=== PATIENT | male | born 1980 | race Caucasian/White ===

== ENCOUNTER 2017-08-20 15:15 | Emergency (ER) | payer MEDICAID ==
--- NOTE | 2017-08-20 15:42 | ER Document Report ---
ED Medical Screen (RME) - General Chief Complaint: Chest Pain Stated Complaint: CHEST PAIN Time Seen by Provider: 08/20/17 15:26 Mode of Arrival: Ambulatory Information source: Patient Notes: 37 y.o male with a PMHx of anxiety, HTN, HLD and GERD presents to the ED with elevated HR. He states that he has been trying to be healthy by eating healthy and working out but today after eating lunch he vomited. He also states that he was going to help his friend move and once he got here he started to feel his heart "fluttering" and went home to rest but was without relief. He states that he's been experiencing episode like this intermittently and he will feel bloated and will feel uneasy at his diaphragm area making him get anxiety. He denies any CP or hx of [place] or stroke. I have greeted and performed a rapid initial assessment of the patient. A comprehensive ED assessment and evaluation of the patient, analysis of test results, and completion of the medical decision making process will be conducted by additional ED providers. TRAVEL OUTSIDE OF THE [place] IN LAST 30 DAYS: No - Related Data Allergies/Adverse Reactions: No Known Allergies Allergy (Verified 08/20/17 15:26) Past Medical History - General Information source: Patient - Past Medical History Cardiac Medical History: Reports: Hx Hypercholesterolemia, Hx Hypertension Renal/ Medical History: Denies: Hx Peritoneal Dialysis GI Medical History: Reports: Hx Gastroesophageal Reflux Disease Psychiatric Medical History: Reports: Hx Anxiety Review of Systems - Review of Systems Constitutional: No symptoms reported EENT: No symptoms reported Cardiovascular: See HPI, Heart racing. denies: Chest pain Respiratory: No symptoms reported Gastrointestinal: See HPI, Vomiting Genitourinary: No symptoms reported Male Genitourinary: No symptoms reported Musculoskeletal: No symptoms reported Skin: No symptoms reported Hematologic/Lymphatic: No symptoms reported Neurological/Psychological: No symptoms reported -: Yes All other systems reviewed and negative Physical Exam - Notes Notes: Physical Exam: General: Alert, appears well. HEENT: Normocephalic. Atraumatic. PERRLA. Extraocular movements intact. Oropharynx clear. Neck: Supple. Respiratory: No respiratory distress. Cardiovascular: regular rate and rhythm. Abdominal: Normal Inspection. No distension. Extremities: Moves all four extremities. Neurological: Normal cognition. AAOx4. Normal speech. Psychological: Normal affect. Normal Mood. Skin: Warm. Dry. Normal color. Scribe Documentation - Scribe Written by Maximo:: Maximo Campbell 08/20/17 [id number] acting as scribe for :: Mack
[2017-08-20 16:09] LABS: ABSOLUTE BASOPHILS # (AUTO) 0.1 10^3/uL (0.0-0.2); ABSOLUTE EOSINOPHILS # (AUTO) 0.2 10^3/uL (0.0-0.6); ABSOLUTE LYMPHOCYTES (AUTO) 1.6 10^3/uL (0.5-4.7); ABSOLUTE MONOCYTES (AUTO) 0.6 10^3/uL (0.1-1.4); BASOPHILS % (AUTO) 0.9 % (0-2); EOSINOPHILS % (AUTO) 3.7 % (0-6); HEMOGLOBIN 15.7 g/dL (13.5-17.0); LYMPHOCYTES % (AUTO) 24.4 % (13-45); MEAN CORPUSCULAR HEMOGLOBIN 29.2 pg (27.0-33.4); MEAN CORPUSCULAR HGB CONC 34.1 g/dL (32.0-36.0); MEAN CORPUSCULAR VOLUME 86 fl (80-97); MONOCYTES % (AUTO) 9.1 % (3-13); PLATELET COUNT 218 10^3/uL (150-450); RED BLOOD COUNT 5.39 10^6/uL (4.35-5.55); RED CELL DISTRIBUTION WIDTH 13.1 % (11.5-14.0); SEGMENTED NEUTROPHILS % (AUTO) 61.9 % (42-78); TOTAL CELLS COUNTED % (AUTO) 100 %; WHITE BLOOD COUNT 6.4 10^3/uL (4.0-10.5)
--- NOTE | 2017-08-20 16:15 | RADIOLOGY REPORT (SQ) ---
EXAM DESCRIPTION: CHEST SINGLE VIEW COMPLETED DATE/TIME: 08/20/2017 4:05 pm REASON FOR STUDY: palpitations, arm pain COMPARISON: None. EXAM PARAMETERS: NUMBER OF VIEWS: One view. TECHNIQUE: Single frontal radiographic view of the chest acquired. RADIATION DOSE: NA LIMITATIONS: None. FINDINGS: LUNGS AND PLEURA: No consolidation, pneumothorax or pleural effusion. MEDIASTINUM AND HILAR STRUCTURES: No masses. Contour normal. HEART AND VASCULAR STRUCTURES: Heart normal in size. Normal vasculature. BONES: No acute findings. HARDWARE: None in the chest. IMPRESSION: No acute radiographic finding in the chest. TECHNICAL DOCUMENTATION: JOB ID: [id number] [employer]- All Rights Reserved Reading location - IP/workstation name: [email or web address]
[2017-08-20 16:32] LABS: ALANINE AMINOTRANSFERASE 62 U/L (21-72); ALBUMIN 4.6 g/dL (3.5-5.0); ALKALINE PHOSPHATASE 57 U/L (38-126); ANION GAP 12 (5-19); ASPARTATE AMINO TRANSFERASE 27 U/L (17-59); BILIRUBIN,DIRECT 0.3 mg/dL (0.0-0.4); BILIRUBIN,TOTAL 0.7 mg/dL (0.2-1.3); BLOOD UREA NITROGEN 17 mg/dL (7-20); CARBON DIOXIDE 27 mmol/L (22-30); CHLORIDE 106 mmol/L (98-107); GLUCOSE 103 mg/dL (75-110); POTASSIUM 3.9 mmol/L (3.6-5.0); SODIUM 145.4 mmol/L (137-145); TOTAL PROTEIN 7.5 g/dL (6.3-8.2)
[2017-08-20] MEDS ORDERED: METOCLOPRAMIDE HCL ORAL SOLN 10 MG/10 ML UDCUP PO ONE (17:32)
[2017-08-20] MEDS ORDERED: LIDOCAINE 2% VISCOUS SOLN 20 ML UDCUP PO ONE (17:32)
[2017-08-20] MEDS ORDERED: MAG HYDROX/AL HYDROX/SIMETH SUSP 30 ML UDCUP PO ONE (17:32)
--- NOTE | 2017-08-20 18:38 | ER Document Report ---
ED General - General Chief Complaint: Chest Pain Stated Complaint: CHEST PAIN Time Seen by Provider: 08/20/17 15:26 Mode of Arrival: Ambulatory Information source: Patient Notes: 37-year-old male with a history of hypertension, anxiety, gastritis, GERD presents with complaint of chest pain that started 2 hours prior to arrival. Patient states that he experienced burning chest pain immediately after eating [place] food. He states the pain was so intense it caused him to be nauseated and he vomited. Patient took a Xanax, Pepto-Bismol and Veronica[place] and had relief of symptoms. He has had prior similar symptoms in the past. He has had a normal stress test that was performed one year prior to arrival. Patient does admit to heavy drinking last night. He states he drank multiple vodka drinks. He admits to poor diet and eating fast food frequently. Patient is pain-free upon my exam. Patient denies family history of early cardiac disease. TRAVEL OUTSIDE OF THE [place] IN LAST 30 DAYS: No - Related Data Allergies/Adverse Reactions: No Known Allergies Allergy (Verified 08/20/17 15:26) Past Medical History - General Information source: Patient - Social History Smoking Status: Unknown if Ever Smoked Chew tobacco use (# tins/day): Yes Smoking Education Provided: No Frequency of alcohol use: Occasional - admits to heavy drinking last night. Drug Abuse: None Lives with: Family, Spouse/Significant other Family History: Reviewed & Not Pertinent Patient has suicidal ideation: No Patient has homicidal ideation: No - Past Medical History Cardiac Medical History: Reports: Hx Hypercholesterolemia, Hx Hypertension Renal/ Medical History: Denies: Hx Peritoneal Dialysis GI Medical History: Reports: Hx Gastroesophageal Reflux Disease Psychiatric Medical History: Reports: Hx Anxiety Past Surgical History: Reports: Hx Orthopedic Surgery - leg and back Review of Systems - Review of Systems Constitutional: denies: Chills, Diaphoresis, Fever EENT: No symptoms reported Cardiovascular: Chest pain. denies: Palpitations Respiratory: denies: Short of breath Gastrointestinal: Abdominal pain - described as fullness, Nausea, Vomiting Physical Exam - Vital signs Vitals: Pulse Ox 98 08/20/17 16:49 - General General appearance: Appears well, Alert In distress: None - HEENT Pupils: PERRL - Respiratory Respiratory status: No respiratory distress. No: Respiratory distress Chest status: Nontender Breath sounds: Normal Chest palpation: Normal - Cardiovascular Rhythm: Regular Heart sounds: Normal auscultation Murmur: No Pulses: Normal: Radial, Dorsalis pedis Normal capillary refill: Yes - Abdominal Inspection: Normal Distension: No distension Bowel sounds: Normal Tenderness: Nontender. No: Guarding, Rebound Organomegaly: No organomegaly - Back Back: Normal, Nontender. No: CVA tenderness - Extremities General upper extremity: Normal inspection, Nontender, Normal color, Normal ROM , Normal temperature. No: Edema General lower extremity: Normal inspection, Nontender, Normal color, Normal ROM , Normal temperature, Normal weight bearing. No: Edema, Winnie's sign - Neurological Neuro grossly intact: Yes Cognition: Normal Orientation: AAOx4 [place] Coma Scale Eye Opening: Spontaneous [place] Coma Scale Verbal: Oriented [place] Coma Scale Motor: Obeys Commands [place] Coma Scale Total: 15 Speech: Normal Motor strength normal: LUE, RUE, LLE, RLE Sensory: Normal - Psychological Associated symptoms: Normal affect, Normal mood, Anxious Course - Re-evaluation Re-evalutation: 08/20/17 23:53 Laboratory 08/20/17 08/20/17 08/20/17 15:55 15:55 15:55 WBC 6.4 RBC 5.39 Hgb 15.7 Hct 46.0 MCV 86 MCH 29.2 MCHC 34.1 RDW 13.1 Plt Count 218 Seg Neutrophils % 61.9 Lymphocytes % 24.4 Monocytes % 9.1 Eosinophils % 3.7 Basophils % 0.9 Absolute Neutrophils 4.0 Absolute Lymphocytes 1.6 Absolute Monocytes 0.6 Absolute Eosinophils 0.2 Absolute Basophils 0.1 Sodium 145.4 H Potassium 3.9 Chloride 106 Carbon Dioxide 27 Anion Gap 12 BUN 17 Creatinine 1.00 Est GFR ( Amer) > 60 Est GFR (Non-Af Amer) > 60 Glucose 103 Calcium 10.0 Magnesium 1.9 Total Bilirubin 0.7 Direct Bilirubin 0.3 Neonat Total Bilirubin Not Reportable Neonat Direct Bilirubin Not Reportable Neonat Indirect Bili Not Reportable AST 27 ALT 62 Alkaline Phosphatase 57 Troponin I < 0.012 Total Protein 7.5 Albumin 4.6 TSH 08/20/17 15:55 WBC RBC Hgb Hct MCV MCH MCHC RDW Plt Count Seg Neutrophils % Lymphocytes % Monocytes % Eosinophils % Basophils % Absolute Neutrophils Absolute Lymphocytes Absolute Monocytes Absolute Eosinophils Absolute Basophils Sodium Potassium Chloride Carbon Dioxide Anion Gap BUN Creatinine Est GFR ( Amer) Est GFR (Non-Af Amer) Glucose Calcium Magnesium Total Bilirubin Direct Bilirubin Neonat Total Bilirubin Neonat Direct Bilirubin Neonat Indirect Bili AST ALT Alkaline Phosphatase Troponin I Total Protein Albumin TSH 1.26 Chest X-Ray 08/20/17 15:36 IMPRESSION: No acute radiographic finding in the chest. 08/20/17 23:55 37-year-old male with history of hypertension, GERD, hyperlipidemia presents with complaint of burning chest pain that occurred 2 hours prior to arrival after eating [place] food. Patient has had multiple similar symptoms and has had extensive cardiac testing including a stress test that was performed in [place] and within normal limits. Patient admits to heavy drinking last night. Upon arrival vitals were reviewed. EKG was obtained and showed the patient to be in normal sinus rhythm. My exam patient is complaining of abdominal fullness but is not having any chest pain. He did take a Xanax, Pepto-Bismol and Veronica- [place] prior to arrival which he states helped his pain. Cardiac workup was obtained and showed normal cardiac enzymes. There are no significant laboratory findings. I think the patient's pain is secondary to gastritis which is secondary to alcohol consumption. Abstinence from drinking was advised. Patient was provided a prescription for Carafate. He has not had any recurrence of his symptoms. Patient states that he is from out of town and is not currently insured and has no primary care physician. Information for [facility] was provided to the patient. - Vital Signs Vital signs: Temp Pulse Resp BP Pulse Ox 98 F 76 18 125/78 98 08/20/17 19:22 08/20/17 19:22 08/20/17 19:22 08/20/17 19:22 08/20/17 19:22 - Laboratory Result Diagrams: 08/20/17 15:55 08/20/17 15:55 Laboratory results interpreted by me: 08/20/17 15:55 Sodium 145.4 H Discharge - Discharge Clinical Impression: Gastritis Qualifiers: Gastritis type: unspecified gastritis Chronicity: chronic Gastritis bleeding: without bleeding Qualified Code(s): K29.50 - Unspecified chronic gastritis without bleeding Condition: Good Disposition: HOME, SELF-CARE Instructions: Gastritis ([facility]), Prilosec (Acid Pump Inhibitor) ([facility]), Reflux Disease (GERD) ([facility]) Prescriptions: Pantoprazole Sodium 40 mg PO DAILY #30 tablet. Sucralfate [Carafate 1 gm Tablet] 1 gm PO ACHS #30 tablet
[2017-08-20 19:23] VITALS: BP 125/78
--- NOTE | 2017-08-20 20:18 | EKG REPORT ---
SEVERITY:- NORMAL ECG - SINUS RHYTHM : Confirmed by: Genaro Batista MD 20-Aug-2017 20:17:29
== END 2017-08-20 19:22 | disposition home or self-care (01) ==
LOC: ER 15:15
DX: K29.50 Unspecified chronic gastritis without bleeding (principal); R11.2 Nausea with vomiting, unspecified; I10 Essential (primary) hypertension; F41.9 Anxiety disorder, unspecified; E78.00 Pure hypercholesterolemia, unspecified
CPT/HCPCS: 93005; 99285; 36415; 83735; 84443; 85025; 80053; 84484; 71045; 93010; J3490